=== PATIENT | male | born 1980 | race Caucasian/White ===

== ENCOUNTER 2017-06-14 05:28 | Day surgery (SDC) | payer OTHER, BC ==
[2017-06-07 09:10] LABS: HEMATOCRIT 46.6 % (37.9-51.0); HEMOGLOBIN 15.9 g/dL (13.5-17.0); MEAN CORPUSCULAR HEMOGLOBIN 27.9 pg (27.0-33.4); MEAN CORPUSCULAR HGB CONC 34.1 g/dL (32.0-36.0); MEAN CORPUSCULAR VOLUME 82 fl (80-97); PLATELET COUNT 320 10^3/uL (150-450); RED BLOOD COUNT 5.68 10^6/uL (4.35-5.55); RED CELL DISTRIBUTION WIDTH 14.2 % (11.5-14.0); WHITE BLOOD COUNT 9.6 10^3/uL (4.0-10.5)
[~2017-06-14 05:28] MED LIST: CEFAZOLIN 1 GM/D5W RTU 1 GM/50 ML RTUPB IV PRN; LACTATED RINGERS 1000 ML IV PRN; LIDOCAINE 0.5% INJ-PF (5 MG/ML) 50 ML SDV SUBCUT PRN
[2017-06-14] MEDS ORDERED: BUPIVACAINE INJ/PF LIPOSOME/PF 266 MG/20 ML SDV ONE (06:36)
[2017-06-14] MEDS ORDERED: BUPIVACAINE HCL 0.25 % INJ/PF (2.5 MG/1 ML) 30 ML VIAL ONE (06:36)
[2017-06-14] MEDS ORDERED: MIDAZOLAM 2 MG/2 ML INJ ONE (07:20)
[2017-06-14] MEDS ORDERED: FENTANYL CITRATE INJ/PF 250 MCG/5 ML AMPULE ONE (07:21)
[2017-06-14] MEDS ORDERED: PROPOFOL INJ 200 MG/20 ML VIAL IV ONE (07:21)
[2017-06-14] MEDS ORDERED: DIPHENHYDRAMINE HCL 50 MG/ML VIAL IV PRN (07:58)
[2017-06-14] MEDS ORDERED: FENTANYL CITRATE INJ/PF 100 MCG/2 ML AMPUL IV PRN ×3 (07:58)
[2017-06-14] MEDS ORDERED: OXYCODONE-ACETAMINOPHEN 5-325 MG TABLET PO PRN ×2 (07:58)
[2017-06-14] MEDS ORDERED: MEPERIDINE HCL/PF INJ 25 MG/1 ML DISP.SYRIN IV PRN (07:58)
[2017-06-14] MEDS ORDERED: PROMETHAZINE HCL INJ 25 MG/1 ML VIAL IV PRN ×2 (07:58)
--- NOTE | 2017-06-14 09:19 | Discharge Summary ---
Discharge Summary (SDC) - Discharge Final Diagnosis: LIH Date of Surgery: 06/14/17 Discharge Date: 06/14/17 Condition: Good Treatment or Instructions: [facility] [address], [place] [address] Discharge Instructions: Open Abdominal Procedures (Hernia) 1.General Information: a. DO NOT DRIVE a car or operative machinery for 1-2 weeks or as long as taking Narcotic pain medication. b. DO NOT consume alcohol, tranquilizers, sleeping medication, or any non- prescribed medication for 24 hours unless approved by your doctor or as long as taking pain medication. c. DO NOT make important decisions or sign any important papers for the first 24 hours after surgery. d. When discharged home the same day as surgery have a responsible person with you the first night. 2.Activity Restriction: 6 weeks; a. Avoid heavy lifting (> 10-15 lbs), straining abdominal muscles and sports, mowing lawn, vacuum finish cleaner and bending over a lot. b. Walking is important to avoid blood clots in the legs and deep breathing can prevent pneumonia. c. If it fine to go for walks, up and down steps, and ride in a car. 3.Treatment: a. You may remove dressing or Band-Aids the day after surgery and shower then daily is fine, but you should not bathe in a tub or go swimming for 2 weeks. b. If you have paper strips (steri strips) on the skin, do not remove them as they will fall off in the coming weeks. Pat them dry after your shower. Sutures beneath the paper strips dissolve. If you have skin sutures or metal akosua they will be removed on your follow up visit. They may also get wet with a shower. c. Do not use oils, powders, or lotion on your incision. 4.Medications: a. b. Stop the narcotic when able since you cannot take it and drive and they cause constipation. You may switch to plain Tylenol, Advil, or Aleve as you transition from the narcotic. Many adults find good pain relief with Advil 600-800 mg three times a day with meal to work well and avoid narcotic use. High dose Advil should only be used for short courses since it can cause indigestion, ulcer bleeding in the stomach and kidney problems. c. You may resume all normal medications unless a change is specified by your doctors. d. 5.Diet: a. If going home the same day as surgery start with clear liquids, and if you do well then advance to normal foods low inf fat and protein. Smaller portion size may be mackay the first night. b. When discharged after hospital stay you may resume a normal diet. 6.Notify Physician If: a. Pain is not relieved by pain medication b. Persistent nausea and vomiting c. Chills, fever (above 101) d. Persistent bleeding or swelling at the operative site e. Unable to urinate for 6-8 hours f. Increased redness, drainage, or foul smelling discharge from incision 7. Follow Up Care: a. Please call our office to schedule an appointment with your doctor for 2 weeks. In the event of any postoperative problems or questions you may call our office during business hours or the On-Call surgeon through the rolling mill operator helper at [facility]. [facility] [phone] [facility] [phone] (Ask for the surgeon director executive communications) b. I understand the instructions for my postoperative care as described above and a copy has been given to me. _ Witness Patient/Significant Other Date Prescriptions: Ketorolac Tromethamine [Toradol 10 mg Tablet] 10 mg PO Q6HP PRN #20 tablet PRN Reason: Discharge Diet: As Tolerated Discharge Activity: Activity As Tolerated Home Care Assistance: None Needed Report the Following to Your Physician Immediately: Shortness of Breath, Increase in Pain, Fever over 101 Degrees
--- NOTE | 2017-06-14 09:28 | Operative Report ---
Operative Report DATE OF SURGERY: 06/14/17 PREOPERATIVE DIAGNOSIS: Left inguinal hernia, large, incarcerated POSTOPERATIVE DIAGNOSIS: Same, indirect OPERATION: Left inguinal herniorrhaphy with large UHS Prolene hernia system SURGEON: NELSON ALAN ANESTHESIA: GA TISSUE REMOVED OR ALTERED: Portion of left inguinal hernia sac COMPLICATIONS: None ESTIMATED BLOOD LOSS: Minimal INTRAOPERATIVE FINDINGS: See below PROCEDURE: The patient was seen in the preop holding area with a left inguinal area was marked. The patient was then taken to the main waiting room where general anesthesia was induced. Left inguinal area was prepped and draped in a sterile fashion. Instrumentation was set up for open left inguinal herniorrhaphy. Surgical plan and surgical timeout were conducted. Markings were made on the skin for planned left inguinal herniorrhaphy. Skin was anesthetized with quarter percent Marcaine. A 5-1/2 cm long left inguinal herniorrhaphy incision was made; Zuleima's fascia was divided with electrocautery , superficial veins ligated as encountered. The tissue in the deep space above the external oblique was anesthetized with quarter percent Marcaine. The external oblique aponeurosis was opened along the direction of its fibers. Cord contents and tissue within the confines of the inguinal canal explored. We identified the left inguinal hernia sac immediately and dissected free of the cord structures carefully. We divided the back such that the very large distal remnant could retract down into the left hemiscrotum. The more proximal portion of the sac was opened and interrogated carefully. A portion of the sigmoid colon was attached to the wall and this was carefully dissected off of the superior surface of the sac with scissors. We were now confident we could close the sac and this was done with a 2-0 Vicryl suture. The proximal sac remnant was cauterized off, and sent to pathology. We now mobilized all of the cord contents as a unit. The ilioinguinal nerve was identified and preserved throughout the dissection. The hernia was an indirect hernia coming out lateral to the inferior epigastric vessels. I used the stump of the closed peritoneum as a dissection point and mobilized the retroperitoneum such as to create a space sufficient to deploy a inner component of a large UHS Prolene hernia system. The appropriate prosthetic was brought onto the field after checking for expiration. The inner component was splayed out in the retroperitoneal pocket followed by blunt dissection. The external component was trimmed to the appropriate configuration and now carefully sewed with approximately 8 sutures, 0 PDS, to Poupart ligament, and conjoined tendon. An upside down U was created in the mass at the 6 o'clock position to accommodate the cord structures. The new internal ring was not too tight. We felt the operation was complete. Sponge and needle counts were correct. The testicle was returned to the left hemiscrotum. External oblique aponeurosis closed along the direction of its fibers with 2-0 Vicryl, Zuleima's closed with 3-0 Vicryl skin with 3-0 Vicryl, Dermabond glue. 20 cc of full-strength Exparel was deployed in the tissues. The operation was deemed complete. The patient was awakened from anesthesia and taken to recovery room in stable condition.
[2017-06-14] MEDS ORDERED: FENTANYL CITRATE INJ/PF 100 MCG/2 ML AMPUL ONE (09:44)
[2017-06-14 12:07] VITALS: BP 130/87
[2017-06-14] MEDS ORDERED: PHENYLEPHRINE HCL INJ/PF 10 MG/1 ML SDV ONE (13:46)
[2017-06-14] MEDS ORDERED: NEOSTIGMINE METHYLSULFATE 10 MG/10 ML VIAL ONE (13:46)
[2017-06-14] MEDS ORDERED: SUCCINYLCHOLINE CHLORIDE INJ 200 MG/10 ML VIAL ONE (13:46)
[2017-06-14] MEDS ORDERED: GLYCOPYRROLATE INJ 0.4 MG/2 ML VIAL ONE (13:46)
[2017-06-14] MEDS ORDERED: ONDANSETRON HCL INJ/PF 4 MG/2 ML SDV ONE (13:46)
[2017-06-14] MEDS ORDERED: KETOROLAC TROMETHAMINE 60 MG/2 ML SDV ONE (13:46)
[2017-06-14] MEDS ORDERED: LIDOCAINE 2% INJ-PF (20 MG/ML) 2 ML AMPUL ONE (13:46)
[2017-06-14] MEDS ORDERED: DEXAMETHASONE SOD PHOSPHATE INJ 4 MG/1 ML VIAL ONE (13:46)
== END 2017-06-14 12:00 | disposition home or self-care (01) ==
LOC: OROUT 05:28
PROVIDERS: ATTEND Surgery
PROC: 0YU60JZ Supplement Left Inguinal Region with Synthetic Substitute, Open Approach (ICD-10-PCS; principal; 2017-06-14 07:30)
DX: K40.90 Unilateral inguinal hernia, without obstruction or gangrene, not specified as recurrent (principal); I10 Essential (primary) hypertension; F17.210 Nicotine dependence, cigarettes, uncomplicated; Z79.899 Other long term (current) drug therapy
CPT/HCPCS: 36415; 830; 84132; 85027; 88302; C1781; C9290; J0330; J0690; J1100; J1885; J2250; J2370; J2405; J2704; J3010; J3490

== ENCOUNTER → 2019-04-03 | Outpatient (CLI) | payer OTHER, BC ==
--- NOTE | 2019-04-03 10:50 | RADIOLOGY REPORT (SQ) ---
EXAM DESCRIPTION: U/S RETROPERITON LTD COMPLETED DATE/TIME: 04/03/2019 8:31 am REASON FOR STUDY: DISORDER OF KIDNEY AND URETER, UNSPECIFIED N28.9 DISORDER OF KIDNEY AND URETER, U NSPECIFIED COMPARISON: None. TECHNIQUE: Dynamic and static grayscale images acquired of the kidneys and bladder and recorded on P ACS. Additional selected color Doppler and spectral images recorded. LIMITATIONS: None. FINDINGS: RIGHT KIDNEY: The right kidney is enlarged and it measures 17.4 x 10.4 x 8.2 cm. There a re innumerable cystic lesions that range in size from less than 1 cm up to 4.6 x 4 x 4.3 cm. There i s no hydronephrosis. LEFT KIDNEY: The left kidney is enlarged and it measures 18.1 x 18.8 x 8.9 cm. There are innumerabl e cystic lesions that range in size from less than 1 cm up to 4.1 x 4 x 2.8 cm. There is no hydronep hrosis. BLADDER: No masses. OTHER FINDINGS: No other finding. IMPRESSION: Findings as above consistent with autosomal dominant polycystic kidney disease. TECHNICAL DOCUMENTATION: JOB ID: [id number] [employer]- All Rights Reserved Reading location - IP/workstation name: [email or web address]
== END ==
LOC: RAD 07:50
PROVIDERS: ATTEND Nurse Practitioner Family
DX: N28.9 Disorder of kidney and ureter, unspecified (principal)
CPT/HCPCS: 76775

== ENCOUNTER → 2019-04-27 | Outpatient (CLI) | payer OTHER, BC ==
--- NOTE | 2019-04-27 14:26 | RADIOLOGY REPORT (SQ) ---
EXAM DESCRIPTION: CT SINUSES FOR ENT COMPLETED DATE/TIME: 04/27/2019 7:39 am REASON FOR STUDY: POLYP OF NASAL CAVITY (J33.0) J33.0 POLYP OF NASAL CAVITY COMPARISON: None. TECHNIQUE: Noncontrast scanning through the paranasal sinuses using bone algorithm. Reconstructed MPR images reviewed. All images stored on PACS. All CT scanners at this facility use dose modulation, iterative reconstruction, and/or weight based d osing when appropriate to reduce radiation dose to as low as reasonably achievable (ALARA). [facility]: Dose Right [facility]: CareDose [facility]: Dose Right [facility]: Teradose 4D [facility]: BigSwerve RADIATION DOSE: mGy. LIMITATIONS: None. FINDINGS: Right sinuses and drainage pathways: Post-surgical changes: None. Frontal sinus: The right frontal sinus is clear with normal appearance. Frontoethmoidal Recess: Normal. Anterior Ethmoid Sinuses: Normal. Posterior Ethmoid Sinuses: Normal. Sphenoid Sinus: Normal. Sphenoethmoidal Recess: Normal. Maxillary Sinus: There is circumferential mucosal thickening in the anterior and inferior maxillary sinus. No air-fluid levels. Ostiomeatal Complex: No osteomeatal complex obstruction. Left Sinuses and Drainage Pathways: Post-Surgical Changes: None. Frontal Sinus: Under pneumatization of the left frontal sinus, a normal variant. Frontoethmoidal Recess: Normal. Anterior Ethmoid Sinuses: Normal. Posterior Ethmoid Sinuses: Normal. Sphenoid Sinus: Polypoid mucosal thickening left sphenoid sinus. Sphenoethmoidal Recess: There is mucosal thickening at the left sphenoethmoidal recess. Maxillary Sinus: There is mucosal thickening at the anterior and inferior left maxillary sinus with polypoid mucosal thickening along the lateral wall. No air-fluid levels. Ostiomeatal Complex: There is mild narrowing on the left secondary to mucosal thickening. Right Olfactory Fossa: No polyps. Left Olfactory Fossa: No polyps. Middle Turbinate Mena Bullosa: No. Paradoxical Middle Turbinate: No. Atelectatic Uncinated Process: No. Frontal Leilani Cell Type I: No. Frontal Leilani Cell Type II: No. Interfrontal Sinus Septal Cell: None. Supra-Orbital Ethmoid: None. Frontal Bullar Cell: None. Suprabullar Bullar Cell: None. Sphenoethmoidal (Onodi) Cell: None. Pneumatization of the Anterior Clinoid Processes: Hypoplastic Maxillary Sinus: None. Osteoneogenesis: None. Bone Dehiscence:None. Nasal Cavity: Normal. Nasal Septum: Mild apex left curvature. Anatomic Variants: Right Vidian Canal: Normal. Left Vidian Canal: Normal. IMPRESSION: Chronic mucosal thickening and polyps in the sphenoid and maxillary sinuses bilaterally. No evidence of acute sinusitis. TECHNICAL DOCUMENTATION: JOB ID: [id number] Quality ID # [id number]: Final reports with documentation of one or more dose reduction techniques (e.g., Au tomated exposure control, adjustment of the mA and/or kV according to patient size, use of iterative reconstruction technique) 2010 [employer]- All Rights Reserved Reading location - IP/workstation name: [email or web address]
== END ==
LOC: RAD 08:18
PROVIDERS: ATTEND Otolaryngology
DX: J33.0 Polyp of nasal cavity (principal)
CPT/HCPCS: 70486

== ENCOUNTER 2019-06-16 08:58 | Day surgery (SDC) | payer OTHER, BC ==
--- NOTE | 2019-06-11 13:04 | EKG REPORT ---
SEVERITY:- ABNORMAL ECG - SINUS RHYTHM FIRST DEGREE AV BLOCK NONSPECIFIC INTRAVENTRICULAR CONDUCTION DELAY LATERAL INFARCT, OLD ANTERIOR INFARCT, AGE INDETERMINATE : Confirmed by: Chase Aquino MD 11-Jun-2019 13:03:42
[~2019-06-16 08:58] MED LIST changes: -CEFAZOLIN 1 GM/D5W RTU 1 GM/50 ML RTUPB IV PRN; +CEFAZOLIN 2 GM/D5W RTU 2 GM/50 ML RTUPB IV PRN; +DEXMEDETOMIDINE INJ 80 MCG/20 ML VIAL IV ONE
[2019-06-16] MEDS ORDERED: DEXAMETHASONE SOD PHOS INJ 10 MG/1 ML VIAL ONE (09:57)
[2019-06-16] MEDS ORDERED: ONDANSETRON HCL INJ/PF 4 MG/2 ML SDV ONE (09:57)
[2019-06-16] MEDS ORDERED: FENTANYL CITRATE INJ/PF 250 MCG/5 ML AMPULE ONE (09:57)
[2019-06-16] MEDS ORDERED: MIDAZOLAM 2 MG/2 ML INJ ONE (09:57)
[2019-06-16] MEDS ORDERED: METOPROLOL TARTRATE PF/INJ 5 MG/5 ML SDV IV ONE (09:57)
[2019-06-16] MEDS ORDERED: PROPOFOL INJ 200 MG/20 ML VIAL IV ONE (09:58)
[2019-06-16] MEDS ORDERED: OXYMETAZOLINE HCL 0.05% NASAL SPRAY 15 ML BOTTLE ONE (10:01)
[2019-06-16] MEDS ORDERED: COCAINE HCL 4% TOPICAL SOLN 4 ML ONE (10:01)
[2019-06-16] MEDS ORDERED: SCOPOLAMINE HYDROBROMIDE 1.5 MG PATCH.TD72 TD PRN (10:21)
[2019-06-16] MEDS: LIDOCAINE 2%/EPINEPHRINE INJ 1.7 ML CARTRIDGE ONE ×2 (10:55→12:20)
[2019-06-16] MEDS ORDERED: TRIAMCINOLONE ACETONIDE INJ 40 MG/1 ML VIAL ONE ×2 (12:10→12:19)
[2019-06-16] MEDS: BACITRACIN ZINC OINTMENT 15 GM ONE ×2 (12:20)
--- NOTE | 2019-06-16 13:04 | Operative Report ---
Operative Report-[facility] Operative Report: Date: 16 June 2019 History: 38-year-old male presents with a history of nasal dyspnea physical exam revealed a severe nasal septal deviation to the left side along with inferior turbinate hypertrophy and collapse of the external nasal valve bilaterally. Endoscopy revealed an antrochoanal polyp on the left side. CT scan confirmed this diagnosis. Presents today for a endoscopic sinus surgery with removal left antrochoanal polyp, septoplasty, inferior turbinate reduction and repair nasal vestibular stenosis. Informed consent was obtained from the patient. Pre-operative diagnosis: 1. Deviated nasal septum 2. Inferior turbinate hypertrophy, bilateral 3. Bilateral nasal vestibular stenosis 4. Left antrochoanal polyp Post operative diagnosis: same as above. Procedure: 1. Nasal septoplasty 2. Inferior turbinate reduction, right side 3 . Inferior turbinate reduction, left side 4. Repair nasal vestibular stenosis, right side (CPT: 71958) 5. Repair nasal vestibular stenosis, left side (CPT: 06990) 6. Left maxillary antrostomy [CPT = 35895] 7. Removal left antrochoanal polyp from the left maxillary sinus [CPT = 76580] Surgeon: Andrei Ley MD, FACS, [facility] Anesthia: KVNG Description of the procedure: After receiving informed consent, the patient was taken to the operating room and placed supine on the operating table. After successful induction and intubation by anesthesia, cottonoids saturated with 4% cocaine were placed into each nasal cavity. After 5 minutes they were removed and the nasal septum along with the inferior turbinates, middle turbinates and lateral nasal wall were injected with 2% Xylocaine with 1-100,000 epinephrine. The 4% cocaine co ttonoids within placed back into each nasal cavity. The patient was then prepped and draped in a sterile fashion. The image guidance system was then calibrated to the patient and found to be functioning normally. The cottonoids were then removed. A number 15 blade was used to make a carolyn transfixtion incision on the left side. Next using a Pastor and then A Isabela elevator, a mucoperichondrial/mucoperiosteal flap was elevated back to the sphenoid rostrum. This was then elevated onto the nasal floor. A mucoperichondrial flap was elevated around the caudal edge of the septum and onto the right side. This exposed both sides of the cartilaginous/osseous septum. The osseocartilaginous junction was and a mucoperiosteal flap was elevated on the right side. Enciso scissors were used to make horizontal cuts in the perpendicular plate of the ethmoid bone, superiorly and inferiorly. Kelton-Olivier forceps were used to remove this. A vomeroethmoid spur was identified and the mucosa was carefully dissected from it. A V-chisel was used to remove this spur. An inferior cartilage spur was removed using a D knife . Maxillary crest deviation was removed using a V chisel. [place]-Sandoval's were used to remove a high septal deflection in the area of the internal nasal valve. The findings included a severe septal deviation towards the left with deviation of the maxillary crest bone towards the left. The septum was viewed with the flaps in place and found to be relatively straight. The middle turbinates were visible on both sides. Attention was then turned towards the endoscopic sinus surgery portion of the procedure. The rigid nasal endoscope was then inserted to the left nasal cavity and the middle turbinate was visualized and medialized using a freer elevator. An antrochoanal polyp was identified posterior to the uncinate. The stem of the polyp was seen exiting the left maxillary sinus going posteriorly where a large polyp was identified. A seeker was placed into the infundibulum and the uncinate process was displaced anteriorly. A sickle knife was used to make an incision along the lateral portion and an uncinectomy was performed using Blakesley forceps and the microdebrider. At this point the stem of the antrochoanal polyp was seen entering the maxillary sinus. The natural os of the sinus was identified and was widened in an inferior and posterior direction using the microdebrider it was widened anteriorly using backbiters.. The stem of the antrochoanal polyp was grasped with Blakesley forceps and a large polyp was removed from the choana and its origin removed from the maxillary sinus. The maxillary sinus was viewed and a remnant polyp was removed from the maxillary sinus. A cottonoid saturated with Afrin was then placed into the middle meatus. The right middle meatus was identified and found to be normal. No evidence of polyps. The carolyn transfixion incision was closed using 4-0 chromic and a 4-0 plain gut whip stitch was used to secure the septal flaps. Attention was then directed to the nasal valve area on the right, where the Vivaer nasal airway remodeling system was used to repair the nasal vestibular stenosis. The handpiece was placed superiorly at the caudal margin of the upper lateral cartilage and the device was activated. This was repeated 2 more times marching inferiorly towards the piriform aperture. A similar procedure was done on the left. Attention was then directed to the inferior turbinates where an inferior turbinate reduction was performed bilaterally. The Celon was used to perform an intramural cauterization bilaterally. Then each turbinate was medialized and then lateralized using a Sayer elevator . Silicon splints coated with bacitracin were placed into each nasal cavity and secured with a 2-0 prolene. Afrin soaked cottonoids were placed into each nasal cavity and secured to each other in front of the nose. The patient was then given back to anesthesia who successfully extubated them. The patient tolerated the procedure well without any complications. Estimated blood loss: 15 mL Fluids: 800 mL The patient was transferred to the post anesthesia care unit in stable condition with spontaneous respirations.
== END 2019-06-16 14:12 | disposition home or self-care (01) ==
LOC: SC 08:58
PROVIDERS: ATTEND Otolaryngology
DX: J34.2 Deviated nasal septum (principal); J33.0 Polyp of nasal cavity; J34.89 Other specified disorders of nose and nasal sinuses; J34.3 Hypertrophy of nasal turbinates; J32.9 Chronic sinusitis, unspecified
CPT/HCPCS: 30465; 31256; 31267; 30520; 93005; 88305 ×2; 93010; 00160; C1751; C1769; J2250; J3490 ×6; J3010; J2405; J3301; J2704; J1100; J0690; 160

== ENCOUNTER → 2019-09-09 | Outpatient (CLI) | payer OTHER, BC | LOC: OD 09:02 | PROVIDERS: ATTEND Otolaryngology | DX: J30.9 Allergic rhinitis, unspecified (principal) | CPT/HCPCS: 36415; 82785; 86003 ==

== ENCOUNTER 2019-09-23 19:05 | Emergency (ER) | payer OTHER, BC ==
[2019-09-23] MEDS ORDERED: DIPH/PERTUSS(ACELL)/TETANUS VAC/PF 0.5 ML SYR (>=10YO) IM ONE (19:48)
--- NOTE | 2019-09-23 19:50 | ER Document Report ---
ED Medical Screen (RME) - General Chief Complaint: Laceration Stated Complaint: RIGHT FOREARM LACERATION Time Seen by Provider: 09/23/19 19:43 Primary Care Provider: RENITA LEIVA MD [Primary Care Provider] - Follow up as needed Notes: Patient is a 39-year-old male who presents to the emergency department with a chief complaint of a laceration to his right forearm. Patient states that he was moving lockers for work and a locker door sliced open his anterior forearm. Patient not sure if he is up-to-date on his tetanus vaccine. Exam: 4 cm laceration noted to right anterior forearm. I have greeted and performed a rapid initial assessment of this patient. A comprehensive ED assessment and evaluation of the patient, analysis of test results and completion of medical decision making process will be conducted by an additional ED providers. TRAVEL OUTSIDE OF THE [place] IN LAST 30 DAYS: No - Related Data Allergies/Adverse Reactions: No Known Allergies Allergy (Verified 09/23/19 19:43) Past Medical History - Past Medical History Cardiac Medical History: Reports: Hx Hypertension Denies: Hx Coronary Artery Disease, Hx Heart Attack Pulmonary Medical History: Denies: Hx Asthma, Hx Bronchitis, Hx COPD, Hx Pneumonia Neurological Medical History: Denies: Hx Cerebrovascular Accident, Hx Seizures GI Medical History: Denies: Hx Hepatitis, Hx Hiatal Hernia, Hx Ulcer Musculoskeltal Medical History: Denies Hx Arthritis Infectious Medical History: Denies: Hx Hepatitis Past Surgical History: Denies: Hx Open Heart Surgery, Hx Pacemaker - Immunizations Hx Diphtheria, Pertussis, Tetanus Vaccination: Yes Physical Exam - Vital signs Vitals: Temp Pulse Resp BP Pulse Ox 98.7 F 86 16 144/96 H 98 09/23/19 19:18 09/23/19 19:18 09/23/19 19:18 09/23/19 19:18 09/23/19 19:18 Course - Vital Signs Vital signs: Temp Pulse Resp BP Pulse Ox 98.7 F 86 16 144/96 H 98 09/23/19 19:18 09/23/19 19:18 09/23/19 19:18 09/23/19 19:18 09/23/19 19:18 Doctor's Discharge - Discharge Referrals: RENITA LEIVA MD [Primary Care Provider] - Follow up as needed
[2019-09-23] MEDS ORDERED: LIDOCAINE 1%/EPINEPHRINE INJ 20 ML VIAL INJ ONE (23:09)
--- NOTE | 2019-09-23 23:11 | ER Document Report ---
ED Wound - General Chief Complaint: Laceration Stated Complaint: RIGHT FOREARM LACERATION Time Seen by Provider: 09/23/19 19:43 Primary Care Provider: RENITA LEIVA MD [ACTIVE STAFF] - Follow up as needed Notes: Patient is a 39-year-old male who comes emergency department for chief complaint of laceration to the right forearm. He states that he was trying to catch a locker that he was supposed be moving at work, he states that an irregular portion of the locker which was broken and had a sharp edge caught him on the forearm and caused a laceration which was bleeding heavily. He denies any other injuries except for small abrasion just below this on the forearm. He is not up-to-date on his tetanus within 5 years. He denies any past medical history other than hypertension. TRAVEL OUTSIDE OF THE [place] IN LAST 30 DAYS: No - Related Data Allergies/Adverse Reactions: No Known Allergies Allergy (Verified 09/23/19 19:43) Home Medications: HTN MEDS Past Medical History - General Information source: Patient - Social History Smoking Status: Current Every Day Smoker Frequency of alcohol use: None Drug Abuse: None Lives with: Family Family History: Reviewed & Not Pertinent Patient has homicidal ideation: No - Past Medical History Cardiac Medical History: Reports: Hx Hypertension Denies: Hx Coronary Artery Disease, Hx Heart Attack Pulmonary Medical History: Denies: Hx Asthma, Hx Bronchitis, Hx COPD, Hx Pneumonia Neurological Medical History: Denies: Hx Cerebrovascular Accident, Hx Seizures GI Medical History: Denies: Hx Hepatitis, Hx Hiatal Hernia, Hx Ulcer Musculoskeletal Medical History: Denies Hx Arthritis Infectious Medical History: Denies: Hx Hepatitis Past Surgical History: Denies: Hx Open Heart Surgery, Hx Pacemaker - Immunizations Hx Diphtheria, Pertussis, Tetanus Vaccination: Yes Review of Systems - Review of Systems Constitutional: No symptoms reported EENT: No symptoms reported Cardiovascular: No symptoms reported Respiratory: No symptoms reported Gastrointestinal: No symptoms reported Genitourinary: No symptoms reported Male Genitourinary: No symptoms reported Musculoskeletal: See HPI Skin: See HPI Hematologic/Lymphatic: No symptoms reported Neurological/Psychological: No symptoms reported Physical Exam - Vital signs Vitals: Temp Pulse Resp BP Pulse Ox 98.7 F 86 16 144/96 H 98 09/23/19 19:18 09/23/19 19:18 09/23/19 19:18 09/23/19 19:18 09/23/19 19:18 - Notes Notes: GENERAL: Alert, interacts well. No acute distress. HEAD: Normocephalic, atraumatic. EYES: Pupils equal, round, and reactive to light. Extraocular movements intact. ENT: Oral mucosa moist, tongue midline. Oropharynx unremarkable. Airway patent. LUNGS: Clear to auscultation bilaterally, no wheezes, rales, or rhonchi. No respiratory distress. Non-tender chest wall. HEART: Regular rate and rhythm. No murmur ABDOMEN: Soft, non-tender. Non-distended. EXTREMITIES: There is a 3.5 cm laceration which is linear, partial-thickness, over the right mid forearm over the extensor surface. Normal elbow, wrist, hand exam, normal capillary refill and sensation, normal radial pulse. Small abrasion over the area just distal to this over the forearm. Otherwise unremarkable. BACK: no cervical, thoracic, lumbar midline tenderness. No saddle anesthesia, normal distal neurovascular exam. NEUROLOGICAL: Alert and oriented x3. Normal speech. Cranial nerves II through XII grossly intact. Strength 5/5 in all extremities. PSYCH: Normal affect, normal mood. SKIN: Warm, dry, normal turgor. No rashes or lesions noted. Course - Re-evaluation Re-evalutation: There is a 3.5 cm thickness laceration over the right forearm with no evidence of tendon, nerve, large vessel injury. Area was cleaned thoroughly, repaired with sutures. Discussed care, follow-up, return precautions. Patient states understanding and agreement. - Vital Signs Vital signs: Temp Pulse Resp BP Pulse Ox 98.4 F 71 16 161/94 H 98 09/24/19 00:26 09/24/19 00:26 09/23/19 19:18 09/24/19 00:26 09/23/19 19:18 Procedures - Laceration/Wound Repair Right forearm Wound length (cm): 3.5 Wound's Depth, Shape: Other - curved/lunar shape Laceration pre-procedure: Sterile PPE donned, Sterile drapes applied, Shur-Clens applied Anesthetic type: 1% Lidocaine w/epi Volume Anesthetic (mLs): 5 Wound explored: Clean, No foreign body removed Wound Repaired With: Sutures Suture Size/Type: 4:0, Prolene Number of Sutures: 1 - Running Layer Closure?: No Post-procedure wound care: Sterile dressing applied Post-procedure NV exam normal: Yes Complications: No Discharge - Discharge Clinical Impression: Laceration of right forearm Qualifiers: Encounter type: initial encounter Qualified Code(s): S51.811A - Laceration without foreign body of right forearm, initial encounter Condition: Stable Disposition: HOME, SELF-CARE Additional Instructions: The wound was repaired with sutures. Keep clean, clean with soap and water, dab dry, avoid soaking or scrubbing. You can apply thin film of topical antibiotic. Sutures need to be removed in 7 days at a medical facility. Return sooner for any concerning symptoms including signs of infection such as developing pain, swelling, redness, discolored discharge, fever, or any other concerning symptoms. Forms: Return to Work Referrals: RENITA LEIVA MD [ACTIVE STAFF] - Follow up as needed
[2019-09-24 00:39] VITALS: BP 161/94
== END 2019-09-24 00:26 | disposition home or self-care (01) ==
LOC: ER 19:05
DX: S81.811A Laceration without foreign body, right lower leg, initial encounter (principal); W26.8XXA Contact with other sharp object(s), not elsewhere classified, initial encounter; Y93.89 Activity, other specified; Y99.0 Civilian activity done for income or pay; F17.200 Nicotine dependence, unspecified, uncomplicated; I10 Essential (primary) hypertension; Z79.899 Other long term (current) drug therapy; Z23 Encounter for immunization
CPT/HCPCS: 99282; 90471; 90715; 12002; J3490

== ENCOUNTER → 2019-10-23 | Outpatient (CLI) | payer OTHER, BC | LOC: OD 13:04 | PROVIDERS: ATTEND Physician Assistant Medical | DX: E87.5 Hyperkalemia (principal) | CPT/HCPCS: 36415; 84132 ==